=== PATIENT | female | born 1990 ===

== ENCOUNTER 2024-02-16 06:11 | Inpatient (IN) | payer OTHER ==
[~2024-02-16] VITALS: Ht 172.7 cm; Wt 100.7 kg
[2024-02-16] MEDS ORDERED: CHLORHEXIDINE GLUCONATE 120 ML BOTTLE TOP ONE (06:20)
[2024-02-16] MEDS ORDERED: ERYTHROMYCIN BASE 1 GM TUBE OP ONE (06:20)
[2024-02-16] MEDS ORDERED: OXYTOCIN 20 UNITS/1000ML RL PIGGYBAG IV ONE ×2 (06:21→09:15)
[2024-02-16] MEDS ORDERED: RINGERS SOLUTION,LACTATED 1,000 ML IV SCH (06:30)
[2024-02-16] MEDS ORDERED: ADULT LOW DOSE81 M1 PO (06:49)
[2024-02-16] MEDS ORDERED: PRENATAL CAPLE1 EAC1 PO (06:50)
[2024-02-16] MEDS ORDERED: OXYTOCIN 1,000 ML IV SCH (07:15)
[2024-02-16 07:23] LABS: HEMATOCRIT 36.9 % (36.0-45.00); HEMOGLOBIN 12.6 g/dL (12.0-15.00); MEAN CELL VOLUME 84.8 fL (80.00-100.00); MEAN CORPUSCULAR HEMOGLOBIN 28.9 pg (27.00-32.0); PLATELET COUNT 246 K/uL (150-450); RED BLOOD COUNT 4.36 M/uL (4.00-6.00)
[2024-02-16] MEDS ORDERED: METHYLERGONOVINE MALEATE 0.2 MG/ML AMPUL ONE (07:39)
[2024-02-16 07:58] LABS: INR 0.94; PARTIAL THROMBOPLASTIN TIME 27.5 SECONDS (22.0-34.0); PROTHROMBIN TIME 9.9 SECONDS (9.0-11.5)
[2024-02-16 08:06] LABS: ALBUMIN 2.8 gm/dL (3.4-5.0); BILIRUBIN TOTAL 0.26 mg/dL (0.3-1.2); CREATININE SERUM 0.58 mg/dL (0.55-1.02); GLOBULINA 3.5 G/DL (2.4-3.5); POTASSIUM 3.55 mEq/L (3.5-5.1); TOTAL PROTEIN 6.3 gm/dL (6.4-8.2)
[2024-02-16] MEDS ORDERED: CHLORHEXIDINE GLUCONATE 120 ML BOTTLE TOP SCH (08:15)
[2024-02-16] MEDS ORDERED: ERYTHROMYCIN BASE 1 GM TUBE OP SCH (08:15)
[2024-02-16] MEDS ORDERED: IBUprofen 400 MG TABLET PO PRN (08:15)
[2024-02-16] MEDS ORDERED: LIDOCAINE HCL 1% 200MG/20ML VIAL IJ SCH (08:15)
[2024-02-16] MEDS ORDERED: METHYLERGONOVINE MALEATE 0.2 MG/ML AMPUL IM SCH ×2 (09:00→12:00)
[2024-02-16 17:52] LABS: HEMATOCRIT 33.1 % (36.0-45.00); HEMOGLOBIN 11.2 g/dL (12.0-15.00); MEAN CELL VOLUME 85.2 fL (80.00-100.00); MEAN CORPUSCULAR HEMOGLOBIN 28.8 pg (27.00-32.0); MEAN CORPUSCULAR HGB CONC 33.8 g/dl (32.0-36.0); PLATELET COUNT 283 K/uL (150-450); RED BLOOD COUNT 3.88 M/uL (4.00-6.00)
[2024-02-18] MEDS ORDERED: KETOROLAC TROMETHAMINE 10 MG TABLET PO PRN (09:15)
== END 2024-02-18 13:34 | disposition home or self-care (01) | DRG 807 ==
LOC: OB/GYN 06:11 → LDR 06:11 → OB/GYN 09:37
PROVIDERS: ADMIT Obstetrics & Gynecology; ATTEND Obstetrics & Gynecology
PROC: 10E0XZZ Delivery of Products of Conception, External Approach (ICD-10-PCS; principal; 2024-02-16)
PROC: 0KQM0ZZ Repair Perineum Muscle, Open Approach (ICD-10-PCS; 2024-02-16)
PROC: 4A1HXCZ Monitoring of Products of Conception, Cardiac Rate, External Approach (ICD-10-PCS; 2024-02-16)
DX: O70.1 Second degree perineal laceration during delivery (principal); Z37.0 Single live birth; Z3A.38 38 weeks gestation of pregnancy; Z20.822 Contact with and (suspected) exposure to COVID-19